=== PATIENT | female | born 1965 | race Caucasian/White ===

== ENCOUNTER 2021-11-27 10:46 | Outpatient (CLI) | payer MEDICARE ==
[2021-11-27 12:35] LABS: #Basophils 0.1 10x3/uL (0.0-0.2); #Eosinphils 0.1 10x3/uL (0.0-0.5); #Monocytes 0.6 10x3/uL (0.0-1.1); #Neutrophils 3.5 10x3/uL (1.5-8.4); %Basophils 0.7 % (0.0-2.0); %Eosinophils 2.1 % (0.0-6.0); %Lymphocytes 35.3 % (18.0-47.0); %Monocytes 9.2 % (0.0-10.0); Hemoglobin 14.7 g/dL (12.0-15.5); Mean Corpuscular HGB CONC 33.6 g/dL (32.0-36.0); Mean Corpuscular Hemoglobin 32.1 pg (27.0-33.0); Mean Corpuscular Volume 95.4 fl (81.6-98.3); Mean Platelet Volume 9.9 fl (7.4-10.4); Platelet Count 232 10x3/uL (150-450); RBC Distribution Width 11.1 % (11.5-14.5); Red Blood Cell (RBC) Count 4.58 10x6/uL (3.90-5.03); White Blood Cell (WBC) Count 6.7 10x3/uL (3.5-10.5)
[2021-11-27 12:49] LABS: ALT (SGPT) 33 U/L (8-55); AST (SGOT) 23 U/L (5-34); Albumin 4.3 g/dL (3.5-5.0); Alkaline Phosphatase 71 U/L (40-110); Anion Gap 10 mmol/L (10-20); BUN (Urea Nitrogen) 13 mg/dL (9.8-20.1); Bilirubin, Total 1.1 mg/dL (0.2-1.2); Calc. Creatinine Clearance 0 mL/min (70-130); Calcium 8.9 mg/dL (7.8-10.44); Carbon Dioxide 27 mmol/L (22-29); Chloride 105 mmol/L (98-107); Globulin 2.6 g/dL (2.4-3.5); Glucose 115 mg/dL (70-105); Potassium 4.3 mmol/L (3.5-5.1); Protein, Total 6.9 g/dL (6.0-8.3); Sodium 138 mmol/L (136-145)
[2021-11-27 19:44] LABS: Hemoglobin A1c 5.2 % (4.0-6.0)
[2021-11-27 23:47] LABS: SARS-CoV-2 PCR by NAA Not Detected (NotDetected)
== END 2021-11-27 10:47 | disposition home or self-care (01) ==
LOC: LABBT 10:46
PROVIDERS: ATTEND Surgery
DX: Z01.818 Encounter for other preprocedural examination (principal); K57.92 Diverticulitis of intestine, part unspecified, without perforation or abscess without bleeding; Z20.822 Contact with and (suspected) exposure to COVID-19
CPT/HCPCS: 80053; 83036; 85025; 93005; U0003; U0005; 93010

== ENCOUNTER 2021-11-27 11:15 | Inpatient (IN) | payer MEDICARE ==
[2021-11-27 14:29] VITALS: BMI 27.1
[2021-12-02] MEDS ORDERED: Fentanyl 100 MCG/2 ML VIAL ONE ×4 (06:35→10:28)
[2021-12-02] MEDS ORDERED: SUGAMMADEX SODIUM 200 MG/2 ML VIAL ONE (06:35)
[2021-12-02] MEDS ORDERED: Famotidine/PF 20 mg/2ml Vial ONE (06:35)
[2021-12-02] MEDS ORDERED: MEROPENEM 1 GM/50 ML 1 GM in Premix Bag 1 BAG IVPB SCH (07:00)
[2021-12-02] MEDS ORDERED: Midazolam HCl 2 mg/2 ml Vial ONE (07:01)
[2021-12-02] MEDS ORDERED: Bupivacaine 0.25% HCL 30 ML VIAL ONE (07:03)
[2021-12-02] MEDS ORDERED: Xylocaine 1% w/ Epi 1:100K 10 ML VIAL ONE (07:03)
[2021-12-02] MEDS ORDERED: Meropenem 1 GM in Sodium Chloride 0.9% 100 ML IVPB SCH ×3 (07:30→14:00)
[2021-12-02] MEDS ORDERED: Dexamethasone 20 MG/5 ML VIAL ONE (07:34)
[2021-12-02] MEDS ORDERED: Glycopyrrolate 0.2 MG/ML 5 ML SYRINGE ONE (07:34)
[2021-12-02] MEDS ORDERED: Ketorolac Tromethamine 30 MG/ML VIAL ONE (07:34)
[2021-12-02] MEDS ORDERED: PROPOFOL 200 MG/20 ML VIAL ONE (07:34)
[2021-12-02] MEDS ORDERED: Metoclopramide HCl 10 MG/2 ML VIAL ONE (07:34)
[2021-12-02] MEDS ORDERED: Ondansetron PF 4 MG/2 ML Vial ONE (07:34)
[2021-12-02] MEDS ORDERED: Rocuronium Bromide 10 MG/ML (10ML VIAL) ONE (07:34)
[2021-12-02] MEDS ORDERED: Lidocaine 1% PF 5 ML VIAL ONE (07:34)
[2021-12-02] MEDS ORDERED: Promethazine HCl 25 MG/ML VIAL IM PRN ×3 (09:35→10:33)
[2021-12-02] MEDS ORDERED: Meperidine HCl/PF 25 MG/ML VIAL SLOW IVP PRN (09:35)
[2021-12-02] MEDS ORDERED: Ondansetron HCl/PF 4 MG/2 ML Vial IVP PRN (09:35)
[2021-12-02] MEDS ORDERED: Promethazine HCl 25 MG/ML VIAL IVPB PRN (09:35)
[2021-12-02] MEDS ORDERED: Ondansetron PF 4 MG/2 ML Vial IVP PRN (10:00)
[2021-12-02] MEDS ORDERED: hydrALAZINE 20 MG/ML VIAL SLOW IVP PRN (10:00)
[2021-12-02] MEDS ORDERED: Meperidine HCl/PF 25 MG/ML VIAL ONE (10:07)
[2021-12-02] MEDS ORDERED: diphenhydrAMINE 25 MG CAP PO PRN (10:33)
[2021-12-02] MEDS ORDERED: fentaNYL Citrate/PF 2,000 MCG in Sodium Chloride 0.9% 60 ML IV PRN (10:33)
[2021-12-02] MEDS ORDERED: Naloxone HCl 0.4 mg/ml Vial IV PRN (10:33)
[2021-12-02] MEDS ORDERED: Zolpidem Tartrate 5 MG TAB PO PRN (10:33)
[2021-12-02] MEDS ORDERED: diphenhydrAMINE 50 MG/ML VIAL IVP PRN (10:33)
[2021-12-02] MEDS ORDERED: diphenhydrAMINE 50 MG/ML VIAL IM PRN (10:33)
[2021-12-02] MEDS ORDERED: PCA Communication Order-Pharmacy FS SCH (10:45)
[2021-12-02] MEDS ORDERED: HYDROmorphone 2 MG/ML VIAL ONE (11:17)
[2021-12-02] MEDS: Ketorolac Tromethamine 30 MG/ML VIAL IVP SCH ×2 (14:12→17:38)
[2021-12-02] MEDS: Meropenem 1 GM in Sodium Chloride 0.9% 100 ML IVPB SCH ×2 (14:13→20:03)
[2021-12-02] MEDS: Sodium Chloride 0.9% 1,000 ML IV SCH ×2 (14:17→17:39)
[2021-12-02] MEDS: Famotidine/PF 20 mg/2ml Vial SLOW IVP SCH (20:03)
[2021-12-02] MEDS: Famotidine 20 MG TAB PO SCH (21:21)
[2021-12-03] MEDS: Sodium Chloride 0.9% 1,000 ML IV SCH ×2 (00:18→11:36)
[2021-12-03] MEDS: Ketorolac Tromethamine 30 MG/ML VIAL IVP SCH ×3 (00:18→11:35)
[2021-12-03] MEDS: Meropenem 1 GM in Sodium Chloride 0.9% 100 ML IVPB SCH ×3 (05:06→21:30)
[2021-12-03 06:49] LABS: #Lymphocytes 2.9 thou/uL (1.20-3.40); #Monocytes 1.5 thou/uL (0.11-0.59); #Neutrophils 9.7 thou/uL (1.40-6.50); %Basophils 0.3 % (0.0-1.0); %Eosinophils 0.3 % (0.0-10.0); %Lymphocytes 20.1 % (21.0-51.0); %Monocytes 10.8 % (0.0-10.0); %Neutrophils 68.4 % (42.0-75.0); Hemoglobin 12.6 g/dL (12.0-16.0); Mean Corpuscular HGB CONC 34.5 g/dL (32.0-36.0); Mean Corpuscular Hemoglobin 34.3 pg (27.0-31.0); Mean Corpuscular Volume 99.6 fL (78.0-98.0); Mean Platelet Volume 7.4 fL (7.4-10.4); Platelet Count 216 thou/uL (130-400); RBC Distribution Width 10.5 % (11.5-14.5); Red Blood Cell (RBC) Count 3.67 mill/uL (4.20-5.40); White Blood Cell (WBC) Count 14.2 thou/uL (4.8-10.8)
[2021-12-03 06:58] LABS: Anion Gap 12 mmol/L (10-20); BUN (Urea Nitrogen) 13 mg/dL (9.8-20.1); Calc. Creatinine Clearance 96 mL/min (70-130); Calcium 8.1 mg/dL (7.8-10.44); Carbon Dioxide 20 mmol/L (22-29); Chloride 110 mmol/L (98-107); Glucose 89 mg/dL (70-105); Potassium 3.9 mmol/L (3.5-5.1); Sodium 138 mmol/L (136-145)
[2021-12-03] MEDS ORDERED: Enoxaparin Sodium 40 MG/0.4 ML SYRINGE SC SCH (09:00)
[2021-12-03] MEDS: Famotidine/PF 20 mg/2ml Vial SLOW IVP SCH ×2 (09:58→21:33)
[2021-12-03] MEDS: Famotidine 20 MG TAB PO SCH ×2 (09:59→21:31)
[2021-12-03 16:27] LABS: Hemoglobin 11.4 g/dL (12.0-16.0)
[2021-12-03] MEDS ORDERED: ALPRAZolam 0.5 MG TAB PO PRN ×2 (19:29→19:32)
[2021-12-03] MEDS ORDERED: Acetaminophen 500 MG TAB PO PRN (19:29)
[2021-12-03] MEDS: Lactated Ringer's 1,000 ML IV SCH (21:32)
[2021-12-03] MEDS: Loratadine 10 MG TAB PO SCH (21:32)
[2021-12-04] MEDS: Sodium Chloride 0.9% 1,000 ML IV SCH (03:48)
[2021-12-04] MEDS: Meropenem 1 GM in Sodium Chloride 0.9% 100 ML IVPB SCH ×3 (04:32→20:34)
[2021-12-04] MEDS: Levothyroxine Sodium 50 MCG TAB PO SCH (05:06)
[2021-12-04] MEDS: Ondansetron PF 4 MG/2 ML Vial IVP PRN (06:08)
[2021-12-04 06:44] LABS: #Basophils 0.1 thou/uL (0.0-0.2); #Eosinphils 0.2 thou/uL (0.0-0.7); #Monocytes 0.9 thou/uL (0.11-0.59); #Neutrophils 3.9 thou/uL (1.40-6.50); %Basophils 0.8 % (0.0-1.0); %Eosinophils 2.2 % (0.0-10.0); %Lymphocytes 36.9 % (21.0-51.0); %Monocytes 10.9 % (0.0-10.0); %Neutrophils 49.1 % (42.0-75.0); Mean Corpuscular HGB CONC 33.9 g/dL (32.0-36.0); Mean Corpuscular Hemoglobin 33.1 pg (27.0-31.0); Mean Corpuscular Volume 97.7 fL (78.0-98.0); Mean Platelet Volume 7.3 fL (7.4-10.4); Platelet Count 184 thou/uL (130-400); RBC Distribution Width 10.2 % (11.5-14.5); Red Blood Cell (RBC) Count 3.32 mill/uL (4.20-5.40)
[2021-12-04] MEDS: Famotidine/PF 20 mg/2ml Vial SLOW IVP SCH ×2 (09:39→20:34)
[2021-12-04] MEDS: Spironolactone 25 MG TAB PO SCH (09:39)
[2021-12-04] MEDS: Famotidine 20 MG TAB PO SCH ×2 (09:40→22:04)
[2021-12-04] MEDS: Dicyclomine 20 MG TAB PO PRN ×2 (12:31→20:34)
[2021-12-04] MEDS: Loratadine 10 MG TAB PO SCH (20:34)
[2021-12-04] MEDS: Lactated Ringer's 1,000 ML IV SCH (21:54)
[2021-12-05] MEDS: Meropenem 1 GM in Sodium Chloride 0.9% 100 ML IVPB SCH ×3 (04:20→19:56)
[2021-12-05] MEDS: Levothyroxine Sodium 50 MCG TAB PO SCH (04:21)
[2021-12-05] MEDS: Famotidine/PF 20 mg/2ml Vial SLOW IVP SCH ×2 (10:06→19:57)
[2021-12-05] MEDS: Dicyclomine 20 MG TAB PO PRN ×2 (10:06→21:29)
[2021-12-05] MEDS: Famotidine 20 MG TAB PO SCH ×2 (10:07→19:57)
[2021-12-05] MEDS: Spironolactone 25 MG TAB PO SCH (10:07)
[2021-12-05] MEDS: Ketorolac Tromethamine 30 MG/ML VIAL IVP SCH (12:17)
[2021-12-05] MEDS: HYDROcodone/Acetaminophen 7.5/325 mg Tablet PO PRN ×2 (16:48→23:15)
[2021-12-05] MEDS: Milk Of Magnesia 30 ML UDCUP PO SCH (19:58)
[2021-12-05] MEDS: Loratadine 10 MG TAB PO SCH (19:58)
[2021-12-06] MEDS: Levothyroxine Sodium 50 MCG TAB PO SCH (04:04)
[2021-12-06] MEDS: HYDROcodone/Acetaminophen 7.5/325 mg Tablet PO PRN ×3 (04:05→15:27)
[2021-12-06] MEDS: Meropenem 1 GM in Sodium Chloride 0.9% 100 ML IVPB SCH ×3 (04:05→20:39)
[2021-12-06] MEDS: Milk Of Magnesia 30 ML UDCUP PO SCH (07:32)
[2021-12-06] MEDS: Ondansetron PF 4 MG/2 ML Vial IVP PRN ×2 (10:07→20:40)
[2021-12-06] MEDS: Spironolactone 25 MG TAB PO SCH (10:10)
[2021-12-06] MEDS: Famotidine 20 MG TAB PO SCH ×2 (10:10→20:40)
[2021-12-06] MEDS: Famotidine/PF 20 mg/2ml Vial SLOW IVP SCH ×2 (10:11→21:04)
[2021-12-06] MEDS ORDERED: Milk Of Magnesia 30 ML UDCUP PO ONE (13:00)
[2021-12-06] MEDS: Loratadine 10 MG TAB PO SCH (20:40)
[2021-12-06] MEDS: Fentanyl 100 MCG/2 ML VIAL SLOW IVP PRN (20:52)
[2021-12-06] MEDS: Dicyclomine 20 MG TAB PO PRN (21:01)
[2021-12-07] MEDS: HYDROcodone/Acetaminophen 7.5/325 mg Tablet PO PRN ×3 (01:24→15:16)
[2021-12-07 04:32] VITALS: TEMP 98.8
[2021-12-07] MEDS: Dicyclomine 20 MG TAB PO PRN (04:33)
[2021-12-07] MEDS: Levothyroxine Sodium 50 MCG TAB PO SCH (04:33)
[2021-12-07] MEDS: Meropenem 1 GM in Sodium Chloride 0.9% 100 ML IVPB SCH ×2 (04:33→12:04)
[2021-12-07] MEDS: Famotidine 20 MG TAB PO SCH (07:49)
[2021-12-07] MEDS: Spironolactone 25 MG TAB PO SCH (07:49)
[2021-12-07 08:41] VITALS: BP 117/78
[2021-12-07] MEDS: Famotidine/PF 20 mg/2ml Vial SLOW IVP SCH (09:12)
[2021-12-07 09:56] LABS: ALT (SGPT) 27 U/L (8-55); AST (SGOT) 17 U/L (5-34); Albumin 3.6 g/dL (3.5-5.0); Alkaline Phosphatase 82 U/L (40-110); Anion Gap 10 mmol/L (10-20); BUN (Urea Nitrogen) 7 mg/dL (9.8-20.1); Bilirubin, Total 1.7 mg/dL (0.2-1.2); Calc. Creatinine Clearance 91 mL/min (70-130); Calcium 8.7 mg/dL (7.8-10.44); Carbon Dioxide 28 mmol/L (22-29); Chloride 103 mmol/L (98-107); Glucose 146 mg/dL (70-105); Potassium 3.8 mmol/L (3.5-5.1); Protein, Total 6.6 g/dL (6.0-8.3); Sodium 137 mmol/L (136-145)
[2021-12-07 10:02] LABS: #Basophils 0.1 thou/uL (0.0-0.2); #Eosinphils 0.5 thou/uL (0.0-0.7); #Lymphocytes 2.1 thou/uL (1.20-3.40); #Monocytes 0.8 thou/uL (0.11-0.59); #Neutrophils 4.5 thou/uL (1.40-6.50); %Basophils 1.2 % (0.0-1.0); %Eosinophils 6.1 % (0.0-10.0); %Monocytes 10.2 % (0.0-10.0); %Neutrophils 56.6 % (42.0-75.0); Hemoglobin 12.4 g/dL (12.0-16.0); Mean Corpuscular HGB CONC 32.1 g/dL (32.0-36.0); Mean Corpuscular Hemoglobin 31.6 pg (27.0-31.0); Mean Corpuscular Volume 98.5 fL (78.0-98.0); Mean Platelet Volume 7.2 fL (7.4-10.4); Platelet Count 298 thou/uL (130-400); RBC Distribution Width 10.4 % (11.5-14.5); Red Blood Cell (RBC) Count 3.93 mill/uL (4.20-5.40); White Blood Cell (WBC) Count 7.9 thou/uL (4.8-10.8)
[2021-12-07] MEDS: Fentanyl 100 MCG/2 ML VIAL SLOW IVP PRN (12:03)
== END 2021-12-07 16:36 | disposition home or self-care (01) | DRG 330 ==
LOC: SURG A 12-02 05:35 → EDSTATUS 12-02 11:15 → SURG A 12-02 13:46
PROVIDERS: ADMIT Surgery; ATTEND Surgery
PROC: 0DBN4ZZ Excision of Sigmoid Colon, Percutaneous Endoscopic Approach (ICD-10-PCS; principal; 2021-12-02)
DX: K57.20 Diverticulitis of large intestine with perforation and abscess without bleeding (principal); K91.840 Postprocedural hemorrhage of a digestive system organ or structure following a digestive system procedure; Y83.8 Other surgical procedures as the cause of abnormal reaction of the patient, or of later complication, without mention of misadventure at the time of the procedure; Z90.710 Acquired absence of both cervix and uterus; Z88.1 Allergy status to other antibiotic agents; Z88.8 Allergy status to other drugs, medicaments and biological substances; Z88.2 Allergy status to sulfonamides; Z88.5 Allergy status to narcotic agent
CPT/HCPCS: 36415; 36416; 71045; 80048; 80053; 85025; 88307; A4649; C1889; J1100; J1170; J1650; J1885; J2175; J2185; J2250; J2405; J2704; J2765; J3010; J3490; J7050; J7120; S0020; S0028

== ENCOUNTER 2022-01-01 11:22 | Outpatient (CLI) | payer MEDICARE ==
[2022-01-01] MEDS ORDERED: Iopamidol 370 76% 50 ML VIAL FS ONE (11:27)
[2022-01-01] MEDS ORDERED: Iopamidol-370 76% 500 ML 1 ML ONE (11:27)
== END 2022-01-01 11:23 | disposition home or self-care (01) ==
LOC: CT 11:22
PROVIDERS: ATTEND Surgery
DX: K57.92 Diverticulitis of intestine, part unspecified, without perforation or abscess without bleeding (principal); K63.89 Other specified diseases of intestine; K59.00 Constipation, unspecified
CPT/HCPCS: 74177; Q9967

== ENCOUNTER 2022-03-18 07:56 | Outpatient (CLI) | payer MEDICARE | END 2022-03-18 07:57 | disposition home or self-care (01) | LOC: CT 07:56 | PROVIDERS: ATTEND Physician Assistant Medical | DX: R10.9 Unspecified abdominal pain (principal); K59.00 Constipation, unspecified; N39.0 Urinary tract infection, site not specified | CPT/HCPCS: 74177 ==

== ENCOUNTER 2025-07-30 07:31 | Outpatient (CLI) | payer MEDICARE ==
[2025-07-30 08:05] LABS: Estimated GFR - POC 65.0
== END 2025-07-30 07:32 | disposition home or self-care (01) ==
LOC: SCSMRI 07:31
PROVIDERS: ATTEND Internal Medicine Gastroenterology
DX: K21.9 Gastro-esophageal reflux disease without esophagitis (principal); K30 Functional dyspepsia; Z90.49 Acquired absence of other specified parts of digestive tract
CPT/HCPCS: 36415; 76376; 82565 ×2; S8037; 74183